=== PATIENT | male | born 1980 | race Caucasian/White ===

== ENCOUNTER 2017-05-05 16:13 | Emergency (ER) | payer MEDICAID, OTHER ==
[~2017-05-05] VITALS: Ht 165.1 cm; Wt 72.0 kg
[2017-05-05 16:25] VITALS: Ht 165.1 cm; Wt 72.0 kg
--- NOTE | 2017-05-05 18:56 | ERD ---
ER Documentation Chief Complaint Chief Complaint left eyelid lac s/p spring popped hit him HPI 37-year-old male presents here to emergency department for complaints of left upper eyelid laceration after being hit by a metal spring while fixing a rocking chair today. Patient's complaint of pain sharp pain 4/10 scale, bleeding is controlled at this time, worse upon touching the area. Patient has a known tetanus immunization. ROS All systems reviewed and are negative except as per history of present illness. Medications Home Meds Active Scripts Ibuprofen* (Motrin*) 600 Mg Tab, 600 MG PO Q6H Y for PAIN AND OR ELEVATED TEMP, #30 TAB Prov:IRVER CAMACHO NP 05/05/17 Cephalexin* (Keflex*) 500 Mg Capsule, 500 MG PO QID for 5 Days, CAP Prov:RIVER CAMACHO [employer] 05/05/17 Reported Medications [none] Unknown Strength No Conflict Check 05/05/17 Allergies Allergies: Coded Allergies: No Known Allergy (Unverified , 05/05/17) PMhx/Soc Medical and Surgical Hx: pt denies Medical Hx, pt denies Surgical Hx Hx Alcohol Use: Yes (socially) Hx Substance Use: No Hx Tobacco Use: No Smoking Status: Never smoker FmHx Family History: No coronary disease, No diabetes, No other Physical Exam Vitals Vital Signs Date Time Temp Pulse Resp B/P Pulse Ox O2 Delivery O2 Flow Rate FiO2 05/05/17 16:25 98.3 74 18 119/74 98 Physical Exam GENERAL: The patient is well developed and appropriate for usual state of health, in no apparent distress. CHEST: Clear to auscultation bilaterally. There are no rales, wheezes or rhonchi. HEART: Regular rate and rhythm. No murmurs, clicks, rubs or gallops. No S3 or S4. ABDOMEN: Soft, nontender and nondistended. Good bowel sounds. No rebound or guarding. No gross peritonitis. No gross organomegaly or masses. No Woods sign or McBurney point tenderness. BACK: No midline or flank tenderness. EXTREMITIES: Equal pulses bilaterally. There is no peripheral clubbing, cyanosis or edema. No focal swelling or erythema. Full range of motion. Grossly neurovascularly intact. NEURO: Alert and oriented. Cranial nerves 2-12 intact. Motor strength in all 4 extremities with 5/5 strength. Sensation grossly intact. Normal speech and gait. SKIN: 0.5 cm superficial laceration wound noted in the left upper eyelid. There is no apparent rash or petechia. The skin is warm and dry. HEMATOLOGIC AND LYMPHATIC: There is no evidence of excessive bruising or lymphedema. No gross cervical, axillary, or inguinal lymphadenopathy. Results 24 hrs Current Medications Medications (Trade) Dose Ordered Sig/Matt Route PRN Reason Start Time Stop Time Status Last Admin Dose Admin Diphtheria/ Tetanus/Acell Pertussis (Adacel) 0.5 ml ONCE ONCE IM* 05/05/17 19:00 05/05/17 19:01 DC 05/05/17 19:02 Tdap was given to prevent tetanus. Patient tolerated medication well. Procedures/MDM Procedure Note: After obtaining informed consent, the wound was irrigated with 250 ml of normal saline and cleaned with diluted betadine. Using aseptic technique, the wound was approximated using a dermabond and Steri-Strip. After the procedure, the wound was well approximated. Patient tolerated procedure well. Medical decision making: Patient's symptoms most likely consistent with a laceration wound, it was repaired without any difficulty. No symptoms of any neurovascular compromise. No foreign body. No tendon involvement, no joint involvement. Disposition: Home. Condition. Stable Prescription Keflex, ibuprofen. Instructions: Patient is advised to take medications as prescribed. Patient was advised to have wound checked in 2 days and avoid wetting area for 5 days. Patient is advised that if there are signs and symptoms of infection, redness, swelling, fever or chills, worsening symptoms to return to emergency room immediately. Otherwise, patient can follow up with primary care doctor in 2 days for reevaluation of symptoms. Departure Diagnosis: Primary Impression: Facial laceration Encounter type: initial encounter Qualified Code: S01.81XA - Facial laceration, initial encounter Condition: Stable RIVER CAMACHO NP May 05, 2017 18:56
[2017-05-05] MEDS ORDERED: DIPHTH/TET/ACEL PERTUSS (ADULT) 0.5 ML VIAL IM* ONE (19:00)
[2017-05-05] MEDS ORDERED: CEPH-443 PO (19:23)
[2017-05-05] MEDS ORDERED: IBUP-1542 PO (19:23)
== END 2017-05-05 19:48 | disposition home or self-care (01) ==
LOC: FTE 16:13
DX: S01.112A Laceration without foreign body of left eyelid and periocular area, initial encounter (principal); W22.8XXA Striking against or struck by other objects, initial encounter; Y92.9 Unspecified place or not applicable; Z23 Encounter for immunization
CPT/HCPCS: 12011; 90471; 90715; Z7502